=== PATIENT | female | born 1995 ===

== ENCOUNTER 2020-01-02 14:50 | Inpatient (IN) | payer SELFPAY ==
[~2020-01-02] VITALS: Ht 157.5 cm; Wt 74.0 kg
[2020-01-02] MEDS ORDERED: LACTATED RINGERS 1,000 ML IV ONE (15:07)
[2020-01-02 15:15] LABS: BASOPHILS % (AUTO) 0 % (0-10); EOSINOPHILS # (AUTO) 0.5 10^3/uL (0.0-0.3); EOSINOPHILS % (AUTO) 4 % (0-10); HEMATOCRIT 40 % (35-52); HEMOGLOBIN 13.3 G/DL (11.5-16.0); LYMPHOCYTES # (AUTO) 2.9 X 10^3 (1.0-4.0); LYMPHOCYTES % (AUTO) 25 % (12-44); MEAN CORPUSCULAR HEMOGLOBIN 26 PG (25-34); MEAN CORPUSCULAR HGB CONC 33 G/DL (32-36); MEAN CORPUSCULAR VOLUME 80 FL (80-99); MEAN PLATELET VOLUME 10.7 FL (7.4-10.4); MONOCYTES # (AUTO) 0.7 X 10^3 (0.0-1.0); MONOCYTES % (AUTO) 6 % (0-12); NEUTROPHILS # (AUTO) 7.4 X 10^3 (1.8-7.8); NEUTROPHILS % (AUTO) 64 % (42-75); PLATELET COUNT 354 10^3/uL (130-400); RED CELL DISTRIBUTION WIDTH 14.9 % (10.0-14.5); WHITE BLOOD COUNT 11.5 10^3/uL (4.3-11.0)
[2020-01-02 15:16] LABS: BILIRUBIN,URINE NEGATIVE (NEGATIVE); CLARITY,URINE CLEAR; COLOR,URINE YELLOW; GLUCOSE, URINE (UA) NEGATIVE (NEGATIVE); KETONES,URINE NEGATIVE (NEGATIVE); LEUKOCYTE ESTERASE ,URINE NEGATIVE (NEGATIVE); NITRITE,URINE NEGATIVE (NEGATIVE); PROTEIN,URINE NEGATIVE (NEGATIVE)
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
[2020-01-02 15:20] LABS: HCG,QUALITATIVE URINE NEGATIVE (NEGATIVE)
[2020-01-02 15:26] LABS: ALBUMIN 4.2 GM/DL (3.2-4.5); CHLORIDE 105 MMOL/L (98-107); POTASSIUM 3.7 MMOL/L (3.6-5.0); SODIUM 137 MMOL/L (135-145)
[2020-01-02 15:27] LABS: CALCIUM 8.9 MG/DL (8.5-10.1)
[2020-01-02 15:28] LABS: GLUCOSE 129 MG/DL (70-105); TOTAL PROTEIN 7.7 GM/DL (6.4-8.2)
[2020-01-02 15:29] LABS: CARBON DIOXIDE 21 MMOL/L (21-32)
[2020-01-02 15:30] LABS: BILIRUBIN,TOTAL 0.2 MG/DL (0.1-1.0)
[2020-01-02 15:32] LABS: ALKALINE PHOSPHATASE 124 U/L (40-136); CREATININE SERUM 0.74 MG/DL (0.60-1.30); GFR ESTIMATED > 60
[2020-01-02 15:33] LABS: ACETAMINOPHEN 19 UG/ML (10-30); BUN/CREATININE RATIO 14
[2020-01-02 15:35] LABS: ALANINE AMINOTRANSFERASE 33 U/L (0-55); SALICYLATE < 5.0 MG/DL (5.0-20.0)
[2020-01-02 15:43] LABS: AMPHETAMINE SCREEN, URINE NEGATIVE (NEGATIVE); BENZODIAZEPINES SCREEN URINE NEGATIVE (NEGATIVE); CANNABINOID SCREEN, URINE NEGATIVE (NEGATIVE); COCAINE SCREEN URINE NEGATIVE (NEGATIVE); METHAMPHETAMINE SCREEN URINE S NEGATIVE (NEGATIVE)
[2020-01-02 15:44] LABS: BARBITURATE SCREEN URINE NEGATIVE (NEGATIVE); METHADONE STAT NEGATIVE (NEGATIVE); OPIATE SCREEN URINE NEGATIVE (NEGATIVE); OXYCODONE STAT NEGATIVE (NEGATIVE); PROPOXYPHENE STAT NEGATIVE (NEGATIVE); TRICYCLIC ANTIDEPRESSANTS SCRE NEGATIVE (NEGATIVE)
[2020-01-02 15:46] LABS: AMORPHOUS SEDIMENT,UR FEW AMOR PHOSPHATE /LPF; BACTERIA,URINE NEGATIVE /HPF; SQUAMOUS EPITHELIAL CELL,UR 0-2 /HPF
--- NOTE | 2020-01-02 15:56 | Diagnostic Imaging Report ---
EXAMINATION: Portable chest. INDICATION: Tylenol overdose. FINDINGS: Lungs demonstrate no focal alveolar infiltrate or consolidation. There is no evidence of an effusion or pneumothorax. Heart size and mediastinal contours appear appropriate and pulmonary vascularity appears normal. No acute or suspicious osseous abnormality is demonstrated. IMPRESSION: No radiographic evidence of an acute cardiopulmonary process. Dictated by: Dictated on workstation # [id number]
[2020-01-02 18:21] VITALS: BP 121/74
[2020-01-02 20:00] VITALS: BP 107/57
--- NOTE | 2020-01-02 21:50 | NUR ---
At 2150 this RN notified Tele-ICU of patient's critical Acetaminophen level of 40. Order received to update poison control for recommendation. This RN notified Poison Control of patient's critical Acetaminophen level of 40. Spoke with JUAN Montes, [employer]. Recommendation is: "This patient is not currently a high risk patient, not necessary to do anymore acetaminophen levels. Acetaminophen level would need to be 75-80 8 hours after taking acetaminophen to require additional intervention". This RN notified Tele-ICU of poison control response.
[2020-01-02 23:00] VITALS: BP 98/60
[2020-01-03] VITALS (11 sets, daily range): BP systolic 93–108; BP diastolic 51–71
[2020-01-03 03:13] LABS: BASOPHILS % (AUTO) 0 % (0-10); EOSINOPHILS # (AUTO) 0.6 10^3/uL (0.0-0.3); EOSINOPHILS % (AUTO) 7 % (0-10); HEMATOCRIT 37 % (35-52); LYMPHOCYTES % (AUTO) 36 % (12-44); MEAN CORPUSCULAR HEMOGLOBIN 26 PG (25-34); MEAN CORPUSCULAR HGB CONC 32 G/DL (32-36); MEAN CORPUSCULAR VOLUME 81 FL (80-99); MEAN PLATELET VOLUME 10.3 FL (7.4-10.4); MONOCYTES # (AUTO) 0.7 X 10^3 (0.0-1.0); MONOCYTES % (AUTO) 8 % (0-12); NEUTROPHILS # (AUTO) 4.1 X 10^3 (1.8-7.8); NEUTROPHILS % (AUTO) 49 % (42-75); PLATELET COUNT 323 10^3/uL (130-400); RED CELL DISTRIBUTION WIDTH 15.1 % (10.0-14.5); WHITE BLOOD COUNT 8.4 10^3/uL (4.3-11.0)
[2020-01-03 03:24] LABS: CHLORIDE 112 MMOL/L (98-107); POTASSIUM 3.4 MMOL/L (3.6-5.0); SODIUM 140 MMOL/L (135-145)
[2020-01-03 03:25] LABS: CALCIUM 8.4 MG/DL (8.5-10.1)
[2020-01-03 03:26] LABS: GLUCOSE 103 MG/DL (70-105)
[2020-01-03 03:27] LABS: CARBON DIOXIDE 18 MMOL/L (21-32)
[2020-01-03 03:29] LABS: PHOSPHORUS 3.5 MG/DL (2.3-4.7)
[2020-01-03 03:30] LABS: CREATININE SERUM 0.66 MG/DL (0.60-1.30); GFR ESTIMATED > 60
[2020-01-03 03:31] LABS: ACETAMINOPHEN < 10 UG/ML (10-30); BUN/CREATININE RATIO 14
[2020-01-03 03:32] LABS: MAGNESIUM 2.2 MG/DL (1.6-2.4)
[2020-01-03] MEDS ORDERED: MAGNESIUM 1 GM/100 ML IVPB 100 ML IV SCH (06:00)
[2020-01-03] MEDS ORDERED: POTASSIUM CL 10MEQ/50ML IVPB 50 ML IV SCH (06:00)
[2020-01-03] MEDS ORDERED: KCL 20 MEQ TAB (K-DUR) PO SCH (06:00)
[2020-01-03] MEDS ORDERED: NS IV 500 ML 500 ML ONE (06:09)
--- NOTE | 2020-01-03 06:10 | Pulmonary Consultation ---
History of Present Illness History of Present Illness Date Seen by Provider: Jan 03, 2020 Time Seen by Provider: 06:07 Date of Admission Allergies and Home Medications Allergies Coded Allergies: No Known Drug Allergies (Unverified , 01/02/20) Past Ejxnhmr-Tmbbmm-Wgrbzn Hx Patient Social History Alcohol Use: Denies Use Recreational Drug Use: No Smoking Status: Never a Smoker Recent Foreign Travel: No Contact w/Someone Who Travel: No Recent Infectious Disease Expo: No Recent Hopitalizations: No Physical Abuse: No Sexual Abuse: No Mistreated: No Fear: No Immunizations Up To Date Tetanus Booster (TDap): Unknown PED Vaccines UTD: Yes Seasonal Allergies Seasonal Allergies: No Past Medical History Surgeries: No Respiratory: No Cardiac: No Neurological: No Genitourinary: No Gastrointestinal: No Musculoskeletal: No Endocrine: No HEENT: No Cancer: No Psychosocial: No Integumentary: No Blood Disorders: No Review of Systems Time Seen by Provider: 06:10 Sepsis Event Evaluation Height, Weight, BMI Height: '" Weight: lbs. oz. kg; 30.71 BMI Method: Exam Exam Vital Signs Date Time Temp Pulse Resp B/P (MAP) Pulse Ox O2 Delivery O2 Flow Rate FiO2 01/03/20 04:00 36.5 01/03/20 04:00 Room Air 01/03/20 02:00 75 13 96/53 (67) 97 Room Air 01/03/20 02:00 Room Air 01/03/20 01:00 84 19 101/64 (76) 97 Room Air 01/03/20 01:00 85 01/03/20 00:13 36.7 69 12 100/57 (71) 97 Room Air 01/03/20 00:00 Room Air 01/02/20 23:00 74 13 98/60 (73) 98 Room Air 01/02/20 21:00 Room Air 01/02/20 20:29 72 01/02/20 20:00 Room Air 01/02/20 20:00 36.7 75 17 107/57 (74) 100 Room Air 01/02/20 18:30 97 Room Air 01/02/20 18:21 36.9 80 18 121/74 (90) 98 Room Air 01/02/20 17:59 88 16 114/68 98 Room Air 01/02/20 16:46 36.7 01/02/20 14:51 37.8 93 10 123/79 (94) 96 Room Air I & O 01/03/20 07:00 Intake Total 2000 ml Output Total 2250 ml Balance -250 ml Height & Weight Height: '" Weight: lbs. oz. kg; 30.71 BMI Method: Capillary Refill: Less Than 3 Seconds Peripheral Pulses: 2+ Radial Pulses (R), 2+ Radial Pulses (L) Gastrointestinal: normal bowel sounds, non tender, soft, no organomegaly Results Lab Laboratory Tests 01/02/20 15:03 01/03/20 02:43 Assessment/Plan Assessment/Plan OD with tyenol -Poison control following -Mucomyst was not started secondary to level not being too high Suicide attempt with acetaminophen -Behavioral health consulted. nonenglish speaking - MIKE GONZALEZ DO Jan 03, 2020 06:10
[2020-01-03 06:16] LABS: ALBUMIN 3.6 GM/DL (3.2-4.5); CHLORIDE 111 MMOL/L (98-107); POTASSIUM 3.5 MMOL/L (3.6-5.0); SODIUM 138 MMOL/L (135-145)
[2020-01-03 06:17] LABS: CALCIUM 8.2 MG/DL (8.5-10.1)
[2020-01-03 06:18] LABS: GLUCOSE 103 MG/DL (70-105); TOTAL PROTEIN 6.8 GM/DL (6.4-8.2)
[2020-01-03 06:19] LABS: CARBON DIOXIDE 18 MMOL/L (21-32)
[2020-01-03 06:20] LABS: BILIRUBIN,TOTAL 0.2 MG/DL (0.1-1.0)
[2020-01-03 06:22] LABS: ALKALINE PHOSPHATASE 109 U/L (40-136); CREATININE SERUM 0.65 MG/DL (0.60-1.30); GFR ESTIMATED > 60
[2020-01-03 06:23] LABS: BUN/CREATININE RATIO 12
[2020-01-03 06:25] LABS: ALANINE AMINOTRANSFERASE 34 U/L (0-55)
[2020-01-03] MEDS: POTASSIUM CL 10MEQ/50ML IVPB 50 ML IV SCH ×4 (06:28→09:30)
--- NOTE | 2020-01-03 08:06 | NUR ---
pt transferred to room 410 via w/ staff and personal belongings. torie harrison on nights gave report to trevor harrison who assumes care of pt.
--- NOTE | 2020-01-03 08:07 | NUR ---
took over care of patient . pt moved to room 410. report given by torie harrison icu. i have reviwed her assessment and agree with it .
--- NOTE | 2020-01-03 08:10 | NUR ---
telesitter and language phone in room and active
--- NOTE | 2020-01-03 14:00 | Discharge Summary ---
Discharge Summary Hospital Course Was the Problem List Reviewed?: Yes Problems/Dx: (1) Suicide attempt by acetaminophen overdose Status: Acute Qualifiers: Qualified Codes: T39.1X2A - Poisoning by 4-aminophenol derivatives, intentional self-harm, initial encounter Hospital Course Date of Admission: Jan 02, 2020 at 16:45 Admission Diagnosis : suicide attempt by acetaminophen overdose Family Physician/Provider: Bette,Local Physician Date of Discharge: 01/03/20 Discharge Diagnosis: suicide attempt by acetaminophen overdose Hospital Course: Jennifer Wall is a 24-year-old female who presented after an intentional ingestion of acetaminophen in a suicide attempt. It was unclear how much Tylenol she had taken. Her Tylenol level was trended and elevated slightly but not significantly. The following morning, she denied ongoing suicidal ideation or intent. She does not have a primary care physician or therapist. She does not take any antidepressants. She is from [facility] and does not have any family in the area. She feels isolated and only goes to work and to home. She says that she feels safe at home. She has a baby at home that is less than 1-year-old. She was discharged in stable condition. She was set up with [facility] health for a follow-up on . She will establish care with a primary care physician there the following week. Labs and Pending Lab Test: Laboratory Tests 01/02/20 15:03: White Blood Count 11.5H, Red Blood Count 5.06, Hemoglobin 13.3, Hematocrit 40, Mean Corpuscular Volume 80, Mean Corpuscular Hemoglobin 26, Mean Corpuscular Hemoglobin Concent 33, Red Cell Distribution Width 14.9H, Platelet Count 354, Mean Platelet Volume 10.7H, Neutrophils (%) (Auto) 64, Lymphocytes (%) (Auto) 25, Monocytes (%) (Auto) 6, Eosinophils (%) (Auto) 4, Basophils (%) (Auto) 0, Neutrophils # (Auto) 7.4, Lymphocytes # (Auto) 2.9, Monocytes # (Auto) 0.7, Eosinophils # (Auto) 0.5H, Basophils # (Auto) 0.0, Urine Color YELLOW, Urine Clarity CLEAR, Urine pH 7.0, Urine Specific [place] <=1.005, Urine Protein NEGATIVE, Urine Glucose (UA) NEGATIVE, Urine Ketones NEGATIVE, Urine Nitrite NEGATIVE, Urine Bilirubin NEGATIVE, Urine Urobilinogen 0.2, Urine Leukocyte Esterase NEGATIVE, Urine RBC (Auto) 1+H, Urine RBC NONE, Urine WBC NONE, Urine Squamous Epithelial Cells 0-2, Urine Crystals PRESENTH, Urine Amorphous Sediment FEW JOSIAH PHOSPHATEH, Urine Bacteria NEGATIVE, Urine Casts NONE, Urine Mucus NEGATIVE, Urine Culture Indicated NO, Urine Test NEGATIVE, Sodium Level 137, Potassium Level 3.7, Chloride Level 105, Carbon Dioxide Level 21, Anion Gap 11, Blood Urea Nitrogen 10, Creatinine 0.74, Estimat Glomerular Filtration Rate > 60, BUN/Creatinine Ratio 14, Glucose Level 129H, Calcium Level 8.9, Corrected Calcium 8.7, Total Bilirubin 0.2, Aspartate Amino Transf (AST/SGOT) 20, Alanine Aminotransferase (ALT/SGPT) 33, Alkaline Phosphatase 124, Total Protein 7.7, Albumin 4.2, Salicylates Level < 5.0L, Urine Opiates Screen NEGATIVE, Urine Oxycodone Screen NEGATIVE, Urine Methadone Screen NEGATIVE, Urine Propoxyphene Screen NEGATIVE, Acetaminophen Level 19, Urine Barbiturates Screen NEGATIVE, Ur Tricyclic Antidepressants Screen NEGATIVE, Urine Phencyclidine Screen NEGATIVE, Urine Amphetamines Screen NEGATIVE, Urine Methamphetamines Screen NEGATIVE, Urine Benzodiazepines Screen NEGATIVE, Urine Cocaine Screen NEGATIVE, Urine Cannabinoids Screen NEGATIVE, Serum Alcohol < 10 01/02/20 15:14: Group A Streptococcus Screen NEGATIVE 01/02/20 17:11: Acetaminophen Level 26 01/02/20 21:05: Acetaminophen Level 40#*H 01/03/20 02:43: White Blood Count 8.4, Red Blood Count 4.64, Hemoglobin 12.0, Hematocrit 37, Mean Corpuscular Volume 81, Mean Corpuscular Hemoglobin 26, Mean Corpuscular Hemoglobin Concent 32, Red Cell Distribution Width 15.1H, Platelet Count 323, Mean Platelet Volume 10.3, Neutrophils (%) (Auto) 49, Lymphocytes (%) (Auto) 36, Monocytes (%) (Auto) 8, Eosinophils (%) (Auto) 7, Basophils (%) (Auto) 0, Neutrophils # (Auto) 4.1, Lymphocytes # (Auto) 3.0, Monocytes # (Auto) 0.7, Eosinophils # (Auto) 0.6H, Basophils # (Auto) 0.0, Prothrombin Time 14.0, INR Comment 1.0, Sodium Level 140, Potassium Level 3.4L, Chloride Level 112H, Carbon Dioxide Level 18L, Anion Gap 10, Blood Urea Nitrogen 9, Creatinine 0.66, Estimat Glomerular Filtration Rate > 60, BUN/Creatinine Ratio 14, Glucose Level 103, Calcium Level 8.4L, Phosphorus Level 3.5, Magnesium Level 2.2, Acetaminophen Level < 10L 01/03/20 02:49: Sodium Level 138, Potassium Level 3.5L, Chloride Level 111H, Carbon Dioxide Level 18L, Anion Gap 9, Blood Urea Nitrogen 8, Creatinine 0.65, Estimat Glomerular Filtration Rate > 60, BUN/Creatinine Ratio 12, Glucose Level 103, Calcium Level 8.2L, Corrected Calcium 8.5, Total Bilirubin 0.2, Aspartate Amino Transf (AST/SGOT) 26, Alanine Aminotransferase (ALT/SGPT) 34, Alkaline Phosphatase 109, Total Protein 6.8, Albumin 3.6 Microbiology 01/02/20 Throat Culture - Preliminary, Resulted Assessment/Pt Instructions Follow up with [facility] behavioral health. Follow-up as scheduled with your new primary care provider at [facility]. Discharge Planning: <30 minutes discharge planning Discharge Instructions Discharge Diet: No Restrictions Activity as Tolerated: Yes Discharge Physical Examination Vital Signs Vital Signs Date Time Temp Pulse Resp B/P (MAP) Pulse Ox O2 Delivery O2 Flow Rate FiO2 01/03/20 12:00 36.1 72 16 105/64 (78) 98 Room Air General Appearance: No Apparent Distress, WD/WN Respiratory: Lungs Clear, Normal Breath Sounds, No Respiratory Distress Cardiovascular: Regular Rate, Rhythm, No Edema, No Murmur Gastrointestinal: Normal Bowel Sounds, Non Tender, Soft Extremity: Normal Inspection, Non Tender, No Pedal Edema Skin: Normal Color, Warm/Dry Neurologic/Psychiatric: Alert, Oriented x3, No Motor/Sensory Deficits, Depressed Affect Allergies: Coded Allergies: No Known Drug Allergies (Unverified , 01/02/20) Copy Copies To 1: [facility] Discharge Summary Date of Admission Jan 02, 2020 at 16:45 Date of Discharge Discharge Date: Jan 03, 2020 Discharge Time: 13:55 Admission Diagnosis suicide attempt by acetaminophen overdose Discharge Diagnosis (1) Suicide attempt by acetaminophen overdose Status: Acute Qualifiers: Qualified Codes: T39.1X2A - Poisoning by 4-aminophenol derivatives, intentional self-harm, initial encounter Clinical Quality Measures DVT/VTE Risk/Contraindication: RFS Level Per Nursing on Admit: 1=Low/No VTE PPX JEANNETTE JUNG MD Jan 03, 2020 14:00
--- NOTE | 2020-01-03 14:36 | NUR ---
CM/SS: Language Line is utilized, as pt does not speak [place]. Visited with pt as to her oversdose and her thoughts and need for mental health services as per consult. Plan: Pt to return home with Mental Health Appointment set up with Therapist Dr. Urias at [facility] on , January 05 and 9:00am Summary: Visit with pt as to her hospital admission. Pt reports being depressed and did not want to live. Pt reports not feeling as bad at this time. Pt is open to getting help, however does not want to have inpatient services, she would like to do something outpatient due to her her job at [employer] and she has a baby at home around 9 months old. She and her have recently moved to [place] from [place]. Pt gives this worker permission to call her . Phone Call to Judekushal, . He would like to see his get some help with her depression. He is given the information about the appointments. He reports she works and can we get a time change. Pt works from 645am-4:00pm. Call to Courtney Segundo - at [facility] include [facility] beds at the [facility] on a possible time change for the appt. She reports they can not change the time, but that a note can be provided for her job. Pt is informed of this. Language Line called again. Pt given the information on the appointments, verbalizes understanding. Pt will also have a medical appointment with Dr Crespo on January 15 at 2pm. She verbalizes understanding. Pt will notify to pick her up and is also aware that if she has suicidal thoughts she can call [facility] prior to her appointment. JUAN Ritchie is requested of this worker to print off pt home instructions in [place]. She reports she is able to do so. Pt thanks this worker for her help. Pt is wished well.
--- NOTE | 2020-01-05 14:25 | NUR ---
CM/SS: [facility] has requested email address for pt based on telemedicine and sending pt some information. Summary: Pt is contacted about the email address - the email address is [email or web address] [facility] Courtney Segundo contacted with the email address. They will make contact with pt via email address.
== END 2020-01-03 14:51 | disposition home or self-care (01) | DRG 918 ==
LOC: ER 14:52 → UNDOADMIN 16:45 → ICU 16:45 → 4TH 01-03 08:06
PROVIDERS: ADMIT Family Medicine; ATTEND Family Medicine
DX: T39.1X2A Poisoning by 4-Aminophenol derivatives, intentional self-harm, initial encounter (principal); S60.812A Abrasion of left wrist, initial encounter; X78.9XXA Intentional self-harm by unspecified sharp object, initial encounter; Y92.009 Unspecified place in unspecified non-institutional (private) residence as the place of occurrence of the external cause
CPT/HCPCS: 36415; 71045; 80048; 80053; 80306; 80320; 80329; 81000; 83735; 84100; 84703; 85025; 85610; 87430; 87804; 93005; 93041; G0378

== ENCOUNTER 2022-05-20 15:59 | Outpatient (RCR) | payer OTHER | END 2022-05-22 | disposition home or self-care (01) | PROVIDERS: ATTEND Nurse Practitioner Family | DX: Z04.2 Encounter for examination and observation following work accident (principal); S39.012D Strain of muscle, fascia and tendon of lower back, subsequent encounter; S76.012D Strain of muscle, fascia and tendon of left hip, subsequent encounter; S50.01XD Contusion of right elbow, subsequent encounter; S29.012D Strain of muscle and tendon of back wall of thorax, subsequent encounter; W01.0XXD Fall on same level from slipping, tripping and stumbling without subsequent striking against object, subsequent encounter ==

== ENCOUNTER 2022-06-13 15:13 | Outpatient (RCR) | payer OTHER | END 2022-06-21 | disposition home or self-care (01) | PROVIDERS: ATTEND Nurse Practitioner Family | DX: Z04.2 Encounter for examination and observation following work accident (principal); S39.012D Strain of muscle, fascia and tendon of lower back, subsequent encounter; S76.012D Strain of muscle, fascia and tendon of left hip, subsequent encounter; S50.01XD Contusion of right elbow, subsequent encounter; S29.012D Strain of muscle and tendon of back wall of thorax, subsequent encounter; W01.0XXD Fall on same level from slipping, tripping and stumbling without subsequent striking against object, subsequent encounter | CPT/HCPCS: 97110; 97140; G0283 ==

== ENCOUNTER 2022-07-10 13:04 | Emergency (ER) | payer BC, OTHER ==
[~2022-07-10] VITALS: Ht 162.2 cm; Wt 77.0 kg
[2022-07-10] MEDS ORDERED: NS IV 1000 ML 1,000 ML IV SCH (13:45)
[2022-07-10] MEDS ORDERED: ONDANSETRON 4 MG/2 ML (SDV) Z0FRAN IVP ONE (13:45)
[2022-07-10] MEDS ORDERED: ACETAMINOPHEN 500 MG TAB (TYLENOL) PO ONE (13:45)
--- NOTE | 2022-07-10 13:48 | ED GU-Female ---
General Chief Complaint: OB < 20 WEEKS Stated Complaint: ABD PAIN 4/5 WKS PREG Nursing Triage Note: PT AMB TO RM 3 WITH COMPLAINT OF LOWER ABD PAIN. PT IS APPROX 4-5 WEEKS . LMP May. STATES WORKS AT [employer] AND MOVES ALOT OF BOXES. DENIES SPOTTING OR CRAMPING. HSUBAND AT BEDSIDE WHO IS TRANSLATING. Source: patient, family () Exam Limitations: no limitations History of Present Illness Date Seen by Provider: Jul 10, 2022 Time Seen by Provider: 13:35 Initial Comments Patient is a 26-year-old female who presents to the emergency department with her chief complaint lower abdominal pain left-sided more than right- sided. Onset this morning while she was at work at [employer]. Patient has recently found out that she is , her last menstrual cycle was June 01, 2022. She is a . Her last delivery was 3 years ago in [place]. She has never had any abdominal surgeries. No daily medications. No allergies to medications. She states that her pain was a "10" this morning when it started and it has improved down to a "6" currently. She has not taken any medications for the pain. She is nauseated. No problems with bowel or bladder, black or bloody stools. No fevers or chills. No complaints of "illness". speaks Albanian and interprets All other review of systems reviewed and negative except as stated Timing/Duration: this morning Severity/Quality: severe, aching, cramping Location: suprapubic (LEFT MORE THAN RIGHT) Radiation: none Activities at Onset: other (working at [employer]) Prior Genitourinary Problems: none Sexual Beckett History: single partner Modifying Factors: Worsens With Movement Associated Symptoms: abdominal pain, nausea/vomiting Allergies and Home Medications Allergies Coded Allergies: No Known Drug Allergies (Unverified , 01/02/20) Patient Home Medication List Home Medication List Reviewed: Yes No Active Prescriptions or Reported Meds Review of Systems Review of Systems Constitutional: see HPI EENTM: no symptoms reported Respiratory: no symptoms reported Cardiovascular: no symptoms reported Gastrointestinal: abdominal pain, nausea : Yes LMP: Jun 01, 2022 Musculoskeletal: no symptoms reported Skin: no symptoms reported Psychiatric/Neurological: No Symptoms Reported All Other Systemes Reviewed Negative Unless Noted: Yes Past Qhqomlu-Zvhqzu-Dzumiq Hx Patient Social History Tobacco Use?: No Use of E-Cig and/or Vaping dev: No Substance use?: No Alcohol Use?: No Pt feels they are or have been: No Immunizations Up To Date Tetanus Booster (TDap): Unknown PED Vaccines UTD: Yes Seasonal Allergies Seasonal Allergies: No Past Medical History Surgeries: No Respiratory: No Cardiac: No Neurological: No Genitourinary: No Gastrointestinal: No Musculoskeletal: No Endocrine: No HEENT: No Cancer: No Psychosocial: No Integumentary: No Blood Disorders: No Physical Exam Vital Signs Vital Signs - First Documented 07/10/22 13:28 Pulse 79 Resp 16 B/P (MAP) 125/68 (87) Pulse Ox 98 O2 Delivery Room Air Capillary Refill : Height, Weight, BMI Height: '" Weight: lbs. oz. kg; 29.00 BMI Method: General Appearance: WD/WN, no apparent distress HEENT: PERRL/EOMI Neck: full range of motion Cardiovascular: regular rate, rhythm Respiratory: lungs clear, normal breath sounds, no respiratory distress, no accessory muscle use Gastrointestinal: soft, tenderness (mild suprapubic tenderness, more tender left low pelvis) Extremities: normal range of motion, non-tender, normal inspection, no pedal edema Neurologic/Psychiatric: alert, normal mood/affect, oriented x 3 Skin: normal color, warm/dry Progress/Results/Core Measures Suspected Sepsis SIRS Temperature: Pulse: 79 Respiratory Rate: 16 Laboratory Tests 07/10/22 13:59: White Blood Count 12.1H Blood Pressure 125 /68 Mean: 87 Laboratory Tests 07/10/22 13:59: Platelet Count 295 Results/Orders Lab Results Laboratory Tests Test 07/10/22 13:28 07/10/22 13:59 Range/Units Urine Color YELLOW Urine Clarity CLEAR Urine pH 6.0 5-9 Urine Specific [place] >=1.030 1.016-1.022 Urine Protein NEGATIVE NEGATIVE Urine Glucose (UA) NEGATIVE NEGATIVE Urine Ketones NEGATIVE NEGATIVE Urine Nitrite NEGATIVE NEGATIVE Urine Bilirubin NEGATIVE NEGATIVE Urine Urobilinogen 0.2 < = 1.0 MG/DL Urine Leukocyte Esterase NEGATIVE NEGATIVE Urine RBC (Auto) TRACE-I H NEGATIVE Urine RBC RARE /HPF Urine WBC RARE /HPF Urine Squamous Epithelial Cells 2-5 /HPF Urine Crystals NONE /LPF Urine Bacteria TRACE /HPF Urine Casts NONE /LPF Urine Mucus NEGATIVE /LPF Urine Culture Indicated NO White Blood Count 12.1 H 4.3-11.0 10^3/uL Red Blood Count 4.53 3.80-5.11 10^6/uL Hemoglobin 13.0 11.5-16.0 g/dL Hematocrit 38 35-52 % Mean Corpuscular Volume 84 80-99 fL Mean Corpuscular Hemoglobin 29 25-34 pg Mean Corpuscular Hemoglobin Concent 34 32-36 g/dL Red Cell Distribution Width 13.2 10.0-14.5 % Platelet Count 295 130-400 10^3/uL Mean Platelet Volume 10.6 9.0-12.2 fL Immature Granulocyte % (Auto) 0 % Neutrophils (%) (Auto) 71 42-75 % Lymphocytes (%) (Auto) 22 12-44 % Monocytes (%) (Auto) 4 0-12 % Eosinophils (%) (Auto) 3 0-10 % Basophils (%) (Auto) 0 0-10 % Neutrophils # (Auto) 8.6 H 1.8-7.8 10^3/uL Lymphocytes # (Auto) 2.6 1.0-4.0 10^3/uL Monocytes # (Auto) 0.5 0.0-1.0 10^3/uL Eosinophils # (Auto) 0.3 0.0-0.3 10^3/uL Basophils # (Auto) 0.0 0.0-0.1 10^3/uL Immature Granulocyte # (Auto) 0.0 0.0-0.1 10^3/uL Human Chorionic Gonadotropin, Quant 6575 H <5 MIU/ML My Orders Orders - GUERDA VALENZUELA MD Ed Iv/Invasive Line Start (07/10/22 13:42) Cbc With Automated Diff (07/10/22 13:42) Abo Rh Type (07/10/22 13:42) Hcg,Quantitative (07/10/22 13:42) Ua Culture If Indicated (07/10/22 13:42) Ns Iv 1000 Ml (Sodium Chloride 0.9%) (07/10/22 13:45) Ondansetron Injection (Zofran Injectio (07/10/22 13:45) Acetaminophen Tablet (Tylenol Tablet) (07/10/22 13:45) Medications Given in ED Current Medications Medications Dose Ordered Sig/[place] Route Start Time Stop Time Status Last Admin Dose Admin Acetaminophen 1,000 mg ONCE ONCE PO 07/10/22 13:45 07/10/22 13:46 DC 07/10/22 13:57 1,000 MG Ondansetron HCl 4 mg ONCE ONCE IVP 07/10/22 13:45 07/10/22 13:46 DC 07/10/22 13:57 4 MG Vital Signs/I&O 07/10/22 13:28 Pulse 79 Resp 16 B/P (MAP) 125/68 (87) Pulse Ox 98 O2 Delivery Room Air Capillary Refill : Blood Pressure Mean: 87 Progress Note : Time: 14:53 Progress Note Patient feels better after fluids and tylenol. Encouraged her to drink lots of water to stay well hydrated. Tylenol Q6 as needed. Follow up with [facility] for care. No concerning findings for SAB, infection or otherwise. Return precautions given. Departure Impression Primary Impression: Abdominal pain during in first trimester Disposition: 01 HOME, SELF-CARE Condition: Improved Departure-Patient Inst. Decision time for Depature: 14:54 Referrals: [facility] (PCP/Family) Primary Care Physician Patient Instructions: Stomach Pain in Early Add. Discharge Instructions: Eat frequent small meals throughout the day. Drink lots of water to stay hydrated. Your urine should be clear. Extra strength Tylenol, 2 tablets every 6 hours as needed for cramps/pain. If you have bleeding, worse pain, fever - please come back to the Emergency Room for re-evaluation. Call [facility] for a visit for care for your . Coma comidas pequeas frecuentes yasmin todo el da. Suki sammy agua para mantenerse hidratado. Rivera orina debe ser uriel. Tylenol extra praneeth, 2 tabletas cada 6 horas segn sea necesario para los calambres / dolor. Si tiene sangrado, peor dolor, fiebre, regrese a la mae de emergencias para jacob nueva evaluacin. Llame a [facility] para jacob visita para recibir atencin para rivera embarazo. Scripts No Active Prescriptions or Reported Meds Work/School Note: Work Release Form Date Seen in the Emergency Department: Jul 10, 2022 Return to Work: Jul 11, 2022 GUERDA VALENZUELA MD Jul 10, 2022 13:48
[2022-07-10 13:58] LABS: BILIRUBIN,URINE NEGATIVE (NEGATIVE); CLARITY,URINE CLEAR; COLOR,URINE YELLOW; GLUCOSE, URINE (UA) NEGATIVE (NEGATIVE); KETONES,URINE NEGATIVE (NEGATIVE); LEUKOCYTE ESTERASE ,URINE NEGATIVE (NEGATIVE); NITRITE,URINE NEGATIVE (NEGATIVE); PROTEIN,URINE NEGATIVE (NEGATIVE)
[2022-07-10 14:13] LABS: BASOPHILS % (AUTO) 0 % (0-10); EOSINOPHILS # (AUTO) 0.3 10^3/uL (0.0-0.3); EOSINOPHILS % (AUTO) 3 % (0-10); HEMATOCRIT 38 % (35-52); LYMPHOCYTES # (AUTO) 2.6 10^3/uL (1.0-4.0); LYMPHOCYTES % (AUTO) 22 % (12-44); MEAN CORPUSCULAR HEMOGLOBIN 29 pg (25-34); MEAN CORPUSCULAR HGB CONC 34 g/dL (32-36); MEAN CORPUSCULAR VOLUME 84 fL (80-99); MEAN PLATELET VOLUME 10.6 fL (9.0-12.2); MONOCYTES # (AUTO) 0.5 10^3/uL (0.0-1.0); MONOCYTES % (AUTO) 4 % (0-12); NEUTROPHILS # (AUTO) 8.6 10^3/uL (1.8-7.8); NEUTROPHILS % (AUTO) 71 % (42-75); PLATELET COUNT 295 10^3/uL (130-400); WHITE BLOOD COUNT 12.1 10^3/uL (4.3-11.0)
[2022-07-10 14:16] LABS: BACTERIA,URINE TRACE /HPF; RBC,URINE RARE /HPF; WBC,URINE RARE /HPF
[2022-07-10 15:08] VITALS: BP 118/72
== END 2022-07-10 15:08 | disposition home or self-care (01) ==
LOC: EDUNIT# 13:04 → ER 13:07
DX: O26.891 Other specified pregnancy related conditions, first trimester (principal); R10.31 Right lower quadrant pain; R10.32 Left lower quadrant pain; O21.9 Vomiting of pregnancy, unspecified; Z3A.01 Less than 8 weeks gestation of pregnancy
CPT/HCPCS: 36415; 81000; 84702; 85025; 86900; 86901

== ENCOUNTER 2023-02-26 07:03 | Inpatient (IN) | payer OTHER ==
[2023-02-26] VITALS (13 sets, daily range): BP systolic 97–134; BP diastolic 58–78
[2023-02-26] MEDS ORDERED: MINERAL OIL 30 ML UDC TOP PRN (08:00)
[2023-02-26] MEDS ORDERED: LACTATED RINGERS 1,000 ML IV SCH (08:00)
[2023-02-26] MEDS ORDERED: D5 LR IV SOLUTION 1,000 ML IV SCH (08:00)
[2023-02-26] MEDS ORDERED: ceFAZolin INJECTION 2,000 MG ONE (08:07)
[2023-02-26] MEDS ORDERED: NS (IVPB) 100 ML ONE (08:08)
[2023-02-26] MEDS ORDERED: AMPICILLIN 2,000 MG/14.8 ML (IV USE) ONE (08:11)
[2023-02-26 08:28] LABS: BASOPHILS % (AUTO) 0 % (0-10); EOSINOPHILS # (AUTO) 0.1 10^3/uL (0.0-0.3); EOSINOPHILS % (AUTO) 1 % (0-10); HEMATOCRIT 37 % (35-52); HEMOGLOBIN 12.7 g/dL (11.5-16.0); LYMPHOCYTES # (AUTO) 2.3 10^3/uL (1.0-4.0); LYMPHOCYTES % (AUTO) 19 % (12-44); MEAN CORPUSCULAR HEMOGLOBIN 30 pg (25-34); MEAN CORPUSCULAR HGB CONC 34 g/dL (32-36); MEAN CORPUSCULAR VOLUME 88 fL (80-99); MEAN PLATELET VOLUME 12.2 fL (9.0-12.2); MONOCYTES # (AUTO) 0.6 10^3/uL (0.0-1.0); MONOCYTES % (AUTO) 5 % (0-12); NEUTROPHILS # (AUTO) 8.8 10^3/uL (1.8-7.8); NEUTROPHILS % (AUTO) 75 % (42-75); PLATELET COUNT 221 10^3/uL (130-400); WHITE BLOOD COUNT 11.9 10^3/uL (4.3-11.0)
[2023-02-26] MEDS ORDERED: AMPICILLIN FOR IV USE 2,000 MG in NS (IVPB) 50 ML IV SCH (09:01)
[2023-02-26] MEDS ORDERED: fentaNYL 2 mcg/ml BUPIVA 0.125 0 ML ONE (09:04)
[2023-02-26] MEDS ORDERED: OXYTOCIN PRE-MIX DRIP 500 ML IV ONE (09:15)
[2023-02-26] MEDS ORDERED: MEPIVACAINE (CARBOCAINE) 2% 50 ML VIAL ONE (09:50)
[2023-02-26] MEDS ORDERED: BENZOCAINE/MENTHOL (DERMOPLAST) 56 ML CAN TP PRN (11:15)
[2023-02-26] MEDS ORDERED: NALOXONE 0.4 MG/ML 1 ML (NARCAN) VIAL IV PRN (11:15)
[2023-02-26] MEDS ORDERED: TETANUS,DIPTH,PERTUSS P/F (BOOSTRIX) 0.5 ML VIAL IM ONE (11:15)
[2023-02-26] MEDS ORDERED: OXYTOCIN PRE-MIX DRIP 500 ML IV SCH ×2 (11:15)
[2023-02-26] MEDS ORDERED: WITCH HAZEL(TUCKS) 40 EA JAR TOP PRN (11:15)
[2023-02-26] MEDS: IBUPROFEN 600 MG (MOTRIN) TAB PO SCH ×2 (11:26→18:54)
[2023-02-26] MEDS: ACETAMINOPHEN 500 MG TAB (TYLENOL) PO SCH ×2 (11:27→18:53)
[2023-02-26] MEDS ORDERED: AMPICILLIN FOR IV USE 1,000 MG in NS (IVPB) 50 ML IV SCH (13:15)
[2023-02-26] MEDS ORDERED: CATHETER FLUSH 10 ML SYR IV SCH (14:00)
[2023-02-26] MEDS: DOCUSATE SODIUM 100 MG (COLACE) CAP PO SCH (20:45)
--- NOTE | 2023-02-26 21:46 | History & Physical-OB ---
OB - Chief Complaint & HPI Date/Time Date of Admission: Date of Admission: Feb 26, 2023 at 07:47 Date seen by a Provider: Feb 26, 2023 Time Seen by a Provider: 09:55 Chief Complaint/History OB-Reason for Admission/Chief: Onset of Labor Hx : 3 Hx Para: 2 Expected Date of Delivery: Mar 01, 2023 Gestational Age in Weeks: 39 Gestational Age in Days: 4 Admission Nurse Assessment Rev: Yes History of Labs GBS positive Allergies and Home Medications Allergies Coded Allergies: No Known Drug Allergies (Unverified , 01/02/20) Patient Home Medication List Home Medication List Reviewed: Yes No Active Prescriptions or Reported Meds OB - History Hx of Present Care: Yes Ultrasounds: Normal mid trimester US Obstetrical Complications: None Medical Complications: None Patient Past Medical History No chronic medical problems Immunizations Influenza Vaccine Up-to-Date: No; Not Current Hepatitis A: No Hepatitis B: No Tetanus Booster (TDap): Unknown OB - Admission Exam Physical Exam Vitals: Vital Signs 02/26/23 20:45 Temp 36.5 Pulse 57 Resp 18 B/P (MAP) 97/58 (71) Pulse Ox 97 O2 Delivery Room Air HEENT: Moist Membranes Heart: Rhythm Normal Lungs: Clear Abdomen: Gravid Cervical Dilatation: 7cm Effacement: 100% Station: 0 Membranes: Ruptured Amniotic Fluid: Clear Heart Rate: 140's Accelerations: Accelerations Present Decelerations: No Decelerations Short Term Variability: Present Associate Field Service Engineer Variability: Average (6-25) Contractions on Admission: < 5 Minutes Apart Intensity: Moderate Labs Laboratory Tests Test 02/26/23 08:05 Range/Units White Blood Count 11.9 H 4.3-11.0 10^3/uL Red Blood Count 4.25 3.80-5.11 10^6/uL Hemoglobin 12.7 11.5-16.0 g/dL Hematocrit 37 35-52 % Mean Corpuscular Volume 88 80-99 fL Mean Corpuscular Hemoglobin 30 25-34 pg Mean Corpuscular Hemoglobin Concent 34 32-36 g/dL Red Cell Distribution Width 13.5 10.0-14.5 % Platelet Count 221 130-400 10^3/uL Mean Platelet Volume 12.2 9.0-12.2 fL Immature Granulocyte % (Auto) 0 % Neutrophils (%) (Auto) 75 42-75 % Lymphocytes (%) (Auto) 19 12-44 % Monocytes (%) (Auto) 5 0-12 % Eosinophils (%) (Auto) 1 0-10 % Basophils (%) (Auto) 0 0-10 % Neutrophils # (Auto) 8.8 H 1.8-7.8 10^3/uL Lymphocytes # (Auto) 2.3 1.0-4.0 10^3/uL Monocytes # (Auto) 0.6 0.0-1.0 10^3/uL Eosinophils # (Auto) 0.1 0.0-0.3 10^3/uL Basophils # (Auto) 0.0 0.0-0.1 10^3/uL Immature Granulocyte # (Auto) 0.0 0.0-0.1 10^3/uL Syphilis Total Antibody Negative Negative OB - Assessment/Plan/Diagnosis Assessment Assessment: active labor (At term 39 weeks), group B positive strep Admission Dx 1. Intrauterine at term 2. GBS positive Admission Status: Inpatient Order (span 2 midnights) Reason for Inpatient Admission: Labor and delivery Plan Plan: Expectant Management Other Plan -patient desires epidural but inability to receive due to eminent delivery SALLY ZHU MD Feb 26, 2023 21:46
--- NOTE | 2023-02-26 21:49 | OB Labor & Delivery Record ---
L&D History Date of Service Date of Service: Feb 26, 2023 History Expected Date of Delivery: Mar 01, 2023 Gestational Age in Weeks: 39 Hx : 3 Hx Para: 3 Complications Events: Routine care Operative Indications (Cesarea: N/A-Vaginal Delivery Intrapartal Events: None Other Complications GBS positive but patient received 1 dose of ampicillin L&D Stage1 Stage One Onset of Labor - Date: Feb 26, 2023 Onset of Labor - Time: 06:00 Monitors and Tracing Monitor Mode: External Heart Rate: 130 Station: 0 Short Term Variability: Present Presentation: Vertex Vital Signs VS - Last 72 Hours, by Label 02/26/23 02/26/23 02/26/23 02/26/23 07:20 07:20 08:35 09:40 Temp 36.1 36.4 36.1 Pulse 59 59 52 57 Resp 18 18 18 18 B/P (MAP) 134/78 (96) 129/61 (83) 105/60 (75) Pulse Ox 100 100 99 O2 Delivery Room Air Room Air Room Air Room Air 02/26/23 02/26/23 02/26/23 02/26/23 10:10 10:30 10:45 11:00 Temp 36.1 Pulse 58 56 56 58 Resp 18 18 18 18 B/P (MAP) 113/59 (77) 118/58 (78) 113/62 (79) 117/69 (85) O2 Delivery Room Air Room Air Room Air Room Air 02/26/23 02/26/23 02/26/23 02/26/23 11:15 11:30 12:00 12:30 Pulse 59 54 56 55 Resp 18 18 18 18 B/P (MAP) 119/72 (88) 120/72 (88) 116/61 (79) 118/68 (85) O2 Delivery Room Air Room Air Room Air Room Air 02/26/23 02/26/23 16:15 20:45 Temp 36.8 36.5 Pulse 53 57 Resp 18 B/P (MAP) 114/70 (85) 97/58 (71) Pulse Ox 97 97 O2 Delivery Room Air Room Air Signs of Distress by FHT Signs of Distress no Fundal Ht/Cervical Dilatation Uterus Position: -1 Rupture of Membranes Spontaneous Ruture of Membrane: Yes Amniotic Membrane Rupture Time: 06:00 Amniotic Membrane Fluid Desc.: Clear L&D Stage2 Stage Two Stage II Date: Feb 26, 2023 Stage II Time: 10:18 Monitors and Tracing Monitor Mode: External Heart Rate: 130 Monitor Accelerations: Uniform Monitor Decelerations: Variable Senior Care Variability: Average (6-10) Short Term Variability: Present Position: Left Occiput Anterior Presentation: Vertex Signs of Distress by FHT Signs of Distress none Cord Descript/Complications Cord Vessel Description: 3 Vessels Delivery Type Delivery Method: Spontaneous Vaginal Anterior Shoulder: Left Episiotomy/Perineal Laceration Laceraction(s)/Extensions: No Condition of Infant Delivery 1 minute Comment: 7 5 minute Comment: 9 Condition of Infant Condition of Infant: Living Exam: No Observed Abnormalities Resuscitation Resuscitation: N/A - Spontaneous Resp L&D Stage3 Stage Three Stage III Date: Feb 26, 2023 Stage III Time: 10:24 Pictocin Pitocin ml/hr: 125 Placenta Delivery Placenta Delivery: Spontaneous Delivery Summary Summary Estimated blood loss (mL): 100 Condition of Delivery Examined: Cervix Examined Post Hemorrhage: No Intervention Required none SALLY ZHU MD Feb 26, 2023 21:49
[2023-02-27 00:39] VITALS: BP 97/59
[2023-02-27] MEDS: ACETAMINOPHEN 500 MG TAB (TYLENOL) PO SCH ×3 (00:39→14:51)
[2023-02-27] MEDS: IBUPROFEN 600 MG (MOTRIN) TAB PO SCH ×3 (00:39→14:51)
[2023-02-27 03:39] VITALS: BP 106/66
[2023-02-27 05:39] LABS: BASOPHILS % (AUTO) 0 % (0-10); EOSINOPHILS # (AUTO) 0.1 10^3/uL (0.0-0.3); EOSINOPHILS % (AUTO) 1 % (0-10); HEMATOCRIT 43 % (35-52); HEMOGLOBIN 14.1 g/dL (11.5-16.0); LYMPHOCYTES % (AUTO) 24 % (12-44); MEAN CORPUSCULAR HEMOGLOBIN 30 pg (25-34); MEAN CORPUSCULAR HGB CONC 33 g/dL (32-36); MEAN CORPUSCULAR VOLUME 90 fL (80-99); MEAN PLATELET VOLUME 12.2 fL (9.0-12.2); MONOCYTES # (AUTO) 0.6 10^3/uL (0.0-1.0); MONOCYTES % (AUTO) 5 % (0-12); NEUTROPHILS # (AUTO) 8.4 10^3/uL (1.8-7.8); NEUTROPHILS % (AUTO) 69 % (42-75); PLATELET COUNT 222 10^3/uL (130-400); WHITE BLOOD COUNT 12.2 10^3/uL (4.3-11.0)
[2023-02-27] MEDS: DOCUSATE SODIUM 100 MG (COLACE) CAP PO SCH (09:00)
[2023-02-27 12:57] VITALS: BP 109/54
--- NOTE | 2023-02-27 14:43 | Discharge Summary ---
Diagnosis/Chief Complaint Date of Admission Feb 26, 2023 at 07:47 Date of Discharge February 27, 2023 Admission Diagnosis Admission Diagnosis 1. Intrauterine at 39 weeks gestation 2. Group B strep positivity perineum 36 weeks Discharge Diagnosis 1. Intrauterine at 39 weeks gestation 2. Group B strep positivity perineum 36 weeks Discharge Summary-OBS Procedures None. Discharge Physical Examination Allergies: Coded Allergies: No Known Drug Allergies (Unverified , 01/02/20) Vitals & I&Os Intake and Output 02/27/23 00:00 Intake Total 500 ml Balance 500 ml Vital Sign - Last 12Hours Date Time Temp Pulse Resp B/P (MAP) Pulse Ox O2 Delivery O2 Flow Rate FiO2 02/27/23 12:57 37.3 60 18 109/54 (72) 98 Room Air Hospital Course Labs Laboratory Tests 02/27/23 05:30: White Blood Count 12.2H, Red Blood Count 4.75, Hemoglobin 14.1, Hematocrit 43, Mean Corpuscular Volume 90, Mean Corpuscular Hemoglobin 30, Mean Corpuscular Hemoglobin Concent 33, Red Cell Distribution Width 13.7, Platelet Count 222, Mean Platelet Volume 12.2, Immature Granulocyte % (Auto) 1, Neutrophils (%) (Auto) 69, Lymphocytes (%) (Auto) 24, Monocytes (%) (Auto) 5, Eosinophils (%) (Auto) 1, Basophils (%) (Auto) 0, Neutrophils # (Auto) 8.4H, Lymphocytes # (Auto) 3.0, Monocytes # (Auto) 0.6, Eosinophils # (Auto) 0.1, Basophils # (Auto) 0.0, Immature Granulocyte # (Auto) 0.1 Discharge Instructions to patient/family Please see electronic discharge instructions given to patient. Discharge Medications Reviewed and agree with Discharge Medication list on patient's Discharge Instruction sheet SALLY ZHU MD Feb 27, 2023 14:43
[2023-02-27 14:51] VITALS: BP 105/61
== END 2023-02-27 15:15 | disposition home or self-care (01) | DRG 807 ==
LOC: LDRP 07:03 → WSo 07:03 → LDRP 07:47
PROVIDERS: ADMIT Family Medicine; ATTEND Family Medicine
PROC: 10E0XZZ Delivery of Products of Conception, External Approach (ICD-10-PCS; principal; 2023-02-26)
DX: O99.824 Streptococcus B carrier state complicating childbirth (principal); Z37.0 Single live birth; Z3A.39 39 weeks gestation of pregnancy
CPT/HCPCS: 36415; 85025; 86780; 86850; 86900; 86901